=== PATIENT | male | born 1945 | race Caucasian/White ===

== ENCOUNTER → 2025-04-26 10:40 | Outpatient (CLI) | payer OTHER, SELFPAY | LOC: WC 10:53 | PROVIDERS: Family Provider Family Medicine; PCP Family Medicine; Referring Provider Nurse Practitioner; Visit Provider Surgery | DX: I73.9 Peripheral vascular disease, unspecified (principal); L97.812 Non-pressure chronic ulcer of other part of right lower leg with fat layer exposed; L97.312 Non-pressure chronic ulcer of right ankle with fat layer exposed; R60.0 Localized edema; L53.8 Other specified erythematous conditions; L98.8 Other specified disorders of the skin and subcutaneous tissue | CPT/HCPCS: 87070; 87077; 87186; 87205; 99203; 99213 ==